=== PATIENT | male | born 1960 | race Hispanic/Latino ===

== ENCOUNTER 2018-10-05 14:30 | Inpatient (IN) | payer MEDICARE ==
[~2018-10-05] VITALS: Ht 157.5 cm; Wt 79.0 kg
--- OUTSIDE RECORDS SUMMARY | 2018-10-05 14:32 | XMS REPORT | Continuity of Care Document ---
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 09/09/2018 [facility] Chronic pain syndrome Active Diagnosis 09/09/2018 [facility] Counseling on substance use and abuse Active Diagnosis 09/09/2018 [facility] Lumbosacral neuritis Active Problem 09/09/2018 [facility] Depression Active Problem 09/09/2018 [facility] Facet joint disease of lumbosacral region Active Problem 09/09/2018 [facility] Degenerative arthritis of knee, bilateral Active Problem 09/09/2018 [facility] Encounter for long-term use of other medications Active Problem 09/09/2018 [facility] Left foot pain Active Diagnosis 09/09/2018 [facility] Medications Medication Details Route Status Patient Instructions Ordering Provider Order Date Source MS Contin 1 tablet Orally Active 15 MG Orally every 12 hrs Tamara 08/09/2018 [facility] Gabapentin 1 tablet Orally Active 800 MG Orally Three times a day Tamara 08/09/2018 [facility] MS Contin 1 tablet Orally Active 15 MG Orally every 12 hrs 07/07/2018 [facility] Gabapentin 1 tablet Orally Active 800 MG Orally Three times a day 07/07/2018 [facility] MS Contin 1 tablet Orally Active 15 MG Orally every 12 hrs 06/09/2018 [facility] Gabapentin 1 tablet Orally Active 800 MG Orally Three times a day 06/09/2018 [facility] MS Contin 1 tablet Orally Active 15 MG Orally every 12 hrs 04/26/2018 [facility] Gabapentin 1 tablet Orally Active 800 MG Orally Three times a day Tamara 04/26/2018 [facility] MS Contin 1 tablet Orally Active 15 MG Orally every 12 hrs 03/08/2018 [facility] Gabapentin 1 tablet Orally Active 800 MG Orally Three times a day Tamara 03/08/2018 [facility] Gabapentin 1 tablet Orally Active 800 MG Orally Three times a day Tamara 02/08/2018 [facility] MS Contin 1 tablet Orally Active 15 MG Orally every 12 hrs 02/08/2018 [facility] Metoprolol Tartrate 1 tablet with food Orally Active 25 MG Orally Twice a day [facility] Linagliptin 1 tablet Orally Active 5 MG Orally Once a day [facility] Isosorbide Mononitrate 1 tablet Orally Active 30 MG Orally Once a day Tamara [facility] Losartan Potassium 1 tablet Orally Active 25 MG Orally Once a day [facility] Clopidogrel Bisulfate 1 tablet Orally Active 75 MG Orally Once a day [facility] Atorvastatin Calcium 1 tablet Orally Active 80 MG Orally Once a day [facility] Zoloft 1 tablet Orally Active 100 MG Orally Once a day [facility] Lotrisone 1 application to affected area Externally Active 1- 0.05 % Externally Twice a day Tam[facility] Metformin HCl 1 tablet with meals Orally Active 500 MG Orally Twice a day [facility] Albuterol Sulfate HFA 2 puffs as needed Inhalation Active 108 (90 Base) MCG/ACT Inhalation every 4 hrs Tamara [facility] Lovastatin 1 tablet with a meal Orally Active 40 MG Orally Once a day [facility] Aspirin 1 tablet Orally Active 81 MG Orally Once a day [facility] Allergies, Adverse Reactions, Alerts Substance Category Reaction Severity Reaction type Status Date Reported Comments Source N.K.D.A. Adverse Reaction Info Not Available Adverse Reaction Active 06/09/2018 [facility] Immunizations Immunization Date Given Site Status Last Updated Comments Source Results Order Name Results Value Reference Range Date Interpretation Comments Source Vital Signs Vital Sign Value Date Comments Source Systolic (mm Hg) 144 06/09/2018 [facility] Weight 180.4 06/09/2018 [facility] Height 65 06/09/2018 [facility] Respitory Rate 16 06/09/2018 [facility] Heart Rate 63 06/09/2018 [facility] Diastolic (mm Hg) 95 06/09/2018 [facility] Systolic (mm Hg) 154 04/26/2018 [facility] Weight 177.4 04/26/2018 [facility] Height 65 04/26/2018 [facility] Respitory Rate 16 04/26/2018 [facility] Heart Rate 71 04/26/2018 [facility] Diastolic (mm Hg) 95 04/26/2018 [facility] Systolic (mm Hg) 155 04/05/2018 [facility] Weight 175.6 04/05/2018 [facility] Height 65 04/05/2018 [facility] Respitory Rate 16 04/05/2018 [facility] Heart Rate 67 04/05/2018 [facility] Diastolic (mm Hg) 91 04/05/2018 [facility] Systolic (mm Hg) 148 03/08/2018 [facility] Weight 175.0 03/08/2018 [facility] Height 65 03/08/2018 [facility] Respitory Rate 16 03/08/2018 [facility] Heart Rate 67 03/08/2018 [facility] Diastolic (mm Hg) 89 03/08/2018 [facility] Systolic (mm Hg) 144 02/08/2018 [facility] Weight 177 02/08/2018 [facility] Height 65 02/08/2018 [facility] Respitory Rate 16 02/08/2018 [facility] Heart Rate 56 02/08/2018 [facility] Diastolic (mm Hg) 90 02/08/2018 [facility] Encounters Location Location Details Encounter Type Encounter Number Reason For Visit Attending Provider ADM Date DC Date Status Source Procedures Procedure Code Date Perfomer Comments Source
--- OUTSIDE RECORDS SUMMARY | 2018-10-05 14:32 | XMS REPORT | Clinical Summary ---
Author Author [facility] Address Unknown Phone Unavailable Care Team Providers Care Bobbin Marker Name Role Phone PCP Unavailable Allergies No Known Allergies Medications End Date Status Medication Sig Dispensed Refills Start Date Active morPHINE (MSIR) 15 MG Take 15 mg by 0 tablet mouth 2 (two) times a day. Active metFORMIN (GLUCOPHAGE) Take 500 mg 0 500 mg tablet by mouth daily with breakfast. Active meloxicam (MOBIC) 15 mg Take 15 mg by 0 tablet mouth daily. Active gabapentin (NEURONTIN) Take 800 mg 0 800 mg tablet by mouth 3 (three) times a day. Active losartan (COZAAR) 25 MG TAKE 1 TABLET 90 tablet 0 tablet BY MOUTH 7 EVERY DAY Active metoprolol tartrate TAKE ONE 180 tablet 0 (LOPRESSOR) 25 mg tablet TABLET BY 7 MOUTH TWICE DAILY Active isosorbide mononitrate TAKE 1/2 45 tablet 0 (IMDUR) 30 MG 24 hr TABLET BY 7 tablet MOUTH EVERY DAY Active Problems Problem Noted Date STEMI (ST elevation myocardial infarction) 04/11/2017 AMI inferior wall 04/06/2017 Immunizations Name Dates Previously Given Next Due FLUCELVAX QUAD PF (0.5mL 04/11/2017 syringe) Social History Date Tobacco Use Types Packs/Day Years Used Former Smoker Alcohol Use Drinks/Week oz/Week Comments No Sex Assigned at Date Recorded Not on file Industry Job Start Date Occupation Not on file Not on file Not on file Travel End Travel History Travel Start No recent travel history available. Last Filed Vital Signs Not on file Plan of Treatment Health Maintenance Due Date Last Done Comments COLON CANCER SCREENING 2012 SHINGLES VACCINES (#1) 2012 INFLUENZA VACCINE 12/23/2018 04/11/2017 Implants Device Identifier Shelf Expiration Date Model / Serial / Lot Implanted Type Area Manufactur er 01/22/2018 [id number] / / [id number] Device Vasclr Clsr Vasoactive Cardiovasc N/A: N/A Intstnl Peptd 6fr Angio-Seal - ular [id number] Implants Implanted: 04/06/2017 (Quantity not on file) [id number] / / Stent System 4.0 X 18mm Resolute Coronary N/A: N/A [employer] Antonio Otw Coronary - [id number] [id number] [place] - Implanted: 04/06/2017 (Quantity not CARDIAC on file) RYHTYM MGMT Results Not on fileafter 10/04/2017 Insurance Payer Benefit Subscriber ID Type Phone Address Plan / Group [employer] [facility] x[facility] Advance Directives Patient has advance care planning documents on file. For more information, lam e contact: Eric Montalvo [address] [place] [address]
--- OUTSIDE RECORDS SUMMARY | 2018-10-05 14:33 | XMS REPORT ---
Author Author Nelson Mcdonald [facility] [employer] Address Unknown Phone Unavailable Care Team Providers Care Breeding Technician Name Role Phone Nelson Mcdonald CP Unavailable Allergies, Adverse Reactions, Alerts Substance Reaction Event Type N.K.D.A. Info Not Available Non Drug Allergy Problems Problem Type Condition Code Onset Dates Condition Status Assessment Other pain disorders related to psychological factors F45.42 Active Assessment Chronic pain syndrome G89.4 Active Assessment Counseling on substance use and abuse Z71.89 Active Problem Chronic pain syndrome G89.4 Active Problem Lumbosacral neuritis M54.17 Active Problem Depression F32.9 Active Problem Facet joint disease of lumbosacral region M48.8X7 Active Problem Degenerative arthritis of knee, bilateral M17.0 Active Problem Encounter for long-term (current) use of other medications Z79.899 Active Assessment Facet joint disease of lumbosacral region M48.8X7 Active Assessment Lumbosacral neuritis M54.17 Active Assessment Left foot pain M79.672 Active Assessment Degenerative arthritis of knee, bilateral M17.0 Active Assessment Depression F32.9 Active Assessment Encounter for long-term (current) use of other medications Z79.899 Active Medications Medication Code System Code Instructions Start Date End Date Status Dosage Metoprolol Tartrate [facility] 68638009873 25 MG Orally Twice a day Active 1 tablet with food Linagliptin [facility] [address]-91 5 MG Orally Once a day Active 1 tablet Gabapentin [facility] 26942946071 800 MG Orally Three times a day Feb 08, 2018 Active 1 tablet Isosorbide Mononitrate [facility] [address]-98 30 MG Orally Once a day Active 1 tablet Losartan Potassium [place] 51326729093 25 MG Orally Once a day Active 1 tablet Clopidogrel Bisulfate [facility] 75518480788 75 MG Orally Once a day Active 1 tablet Atorvastatin Calcium [facility] 16450833049 80 MG Orally Once a day Active 1 tablet Zoloft [facility] 14455690737 100 MG Orally Once a day Active 1 tablet MS Contin [facility] 14749959178 15 MG Orally every 12 hrs Feb 08, 2018 Mar 10, 2018 Active 1 tablet Lotrisone [facility] 70595893634 1-0.05 % Externally Twice a day Active 1 application to affected area Metformin HCl [facility] 34378941576 500 MG Orally Twice a day Active 1 tablet with meals Albuterol Sulfate HFA [facility] [address]-48 108 (90 Base) MCG/ACT Inhalation every 4 hrs Active 2 puffs as needed Lovastatin [facility] 71823419643 40 MG Orally Once a day Active 1 tablet with a meal Aspirin [facility] 16668740378 81 MG Orally Once a day Active 1 tablet Vital Signs Date/Time: Feb 08, 2018 Blood Pressure Systolic 144 mm Hg Weight 177 lbs Height 65 in BMI 29.45 Index Respiratory Rate 16 /min Cardiac Monitoring Heart Rate 56 /min Blood Pressure Diastolic 90 mm Hg Results No Known Results Summary Purpose [employer] Submission
--- OUTSIDE RECORDS SUMMARY | 2018-10-05 14:33 | XMS REPORT ---
Author Author [facility] Address Unknown Phone Unavailable Care Team Providers Care Cone Treater Name Role Phone Unavailable Unavailable Problems This patient has no known problems. Allergies, Adverse Reactions, Alerts This patient has no known allergies or adverse reactions. Medications This patient has no known medications.
--- OUTSIDE RECORDS SUMMARY | 2018-10-05 14:33 | XMS REPORT ---
Author Nelson Ruby Organization [employer] Address Unknown Phone Unavailable Care Team Providers Care Manager Of Tax Name Role Phone Nelson cMdonald CP Unavailable Allergies No Known Allergies Problems Problem Type Condition Code Onset Dates Condition Status Problem Chronic pain syndrome G89.4 Active Problem Lumbosacral neuritis M54.17 Active Problem Depression F32.9 Active Problem Facet joint disease of lumbosacral region M48.8X7 Active Problem Degenerative arthritis of knee, bilateral M17.0 Active Problem Encounter for long-term (current) use of other medications Z79.899 Active Medications No Known Medications Results No Known Results Summary Purpose [employer] Submission
--- OUTSIDE RECORDS SUMMARY | 2018-10-05 14:33 | XMS REPORT ---
Author Author Nelson Mcdonald [facility] [employer] Address Unknown Phone Unavailable Care Team Providers Care Icu Staff Nurse Name Role Phone Nelson Mcdonald CP Unavailable [...] Instructions Start Date End Date Status Dosage Atorvastatin Calcium [facility] 72785530521 80 MG Orally Once a day Active 1 tablet MS Contin [facility] 02390671548 15 MG Orally every 12 hrs Jun 09, 2018 Jul 09, 2018 Active 1 tablet Isosorbide Mononitrate [facility] [address]-73 30 MG Orally Once a day Active 1 tablet Metoprolol Tartrate [facility] 38509502839 25 MG Orally Twice a day Active 1 tablet with food Lovastatin [facility] 19856233702 40 MG Orally Once a day Active 1 tablet with a meal Lotrisone [facility] 96507925004 1-0.05 % Externally Twice a day Active 1 application to affected area Aspirin [facility] 21436416668 81 MG Orally Once a day Active 1 tablet Linagliptin [facility] [address]-26 5 MG Orally Once a day Active 1 tablet Clopidogrel Bisulfate [facility] 42624357463 75 MG Orally Once a day Active 1 tablet Metformin HCl [facility] 82072235617 500 MG Orally Twice a day Active 1 tablet with meals Zoloft [facility] 66008729061 100 MG Orally Once a day Active 1 tablet Losartan Potassium [place] 30282777500 25 MG Orally Once a day Active 1 tablet Albuterol Sulfate HFA [facility] [address]-60 108 (90 Base) MCG/ACT Inhalation every 4 hrs Active 2 puffs as needed Gabapentin [facility] 93501819118 800 MG Orally Three times a day Jun 09, 2018 Active 1 tablet Vital Signs Date/Time: Jun 09, 2018 Blood Pressure Systolic 144 mm Hg Weight 180.4 lbs Height 65 in BMI 30.02 Index Respiratory Rate 16 /min Cardiac Monitoring Heart Rate 63 /min Blood Pressure Diastolic 95 mm Hg Results No Known Results Summary Purpose [employer] Submission
--- OUTSIDE RECORDS SUMMARY | 2018-10-05 14:33 | XMS REPORT ---
Author Author Nelson Mcdonald [facility] [employer] Address Unknown Phone Unavailable Care Team Providers Care Globe Tester Name Role Phone Nelson Mcdonald CP Unavailable [...] Date End Date Status Dosage Metoprolol Tartrate [facility] 70521318606 25 MG Orally Twice a day Active 1 tablet with food Losartan Potassium [facility] 70088544489 25 MG Orally Once a day Active 1 tablet Aspirin [facility] 80021739338 81 MG Orally Once a day Active 1 tablet Lovastatin [facility] 81311202111 40 MG Orally Once a day Active 1 tablet with a meal Linagliptin [facility] [address]-51 5 MG Orally Once a day Active 1 tablet Metformin HCl ND 52779907281 500 MG Orally Twice a day Active 1 tablet with meals MS Contin [facility] 99197980095 15 MG Orally every 12 hrs Mar 08, 2018 Apr 07, 2018 Active 1 tablet Zoloft [facility] 76635181207 100 MG Orally Once a day Active 1 tablet Lotrisone [facility] 85107474325 1-0.05 % Externally Twice a day Active 1 application to affected area Albuterol Sulfate HFA [facility] [address]-89 108 (90 Base) MCG/ACT Inhalation every 4 hrs Active 2 puffs as needed Isosorbide Mononitrate [facility] [address]-96 30 MG Orally Once a day Active 1 tablet Clopidogrel Bisulfate [facility] 18537009495 75 MG Orally Once a day Active 1 tablet Atorvastatin Calcium [facility] 83143954231 80 MG Orally Once a day Active 1 tablet Gabapentin [facility] 19230462750 800 MG Orally Three times a day Mar 08, 2018 Active 1 tablet Vital Signs Date/Time: Mar 08, 2018 Blood Pressure Systolic 148 mm Hg Weight 175.0 lbs Height 65 in BMI 29.12 Index Respiratory Rate 16 /min Cardiac Monitoring Heart Rate 67 /min Blood Pressure Diastolic 89 mm Hg Results No Known Results Summary Purpose [employer] Submission
--- OUTSIDE RECORDS SUMMARY | 2018-10-05 14:33 | XMS REPORT ---
Author Nelson Ruby Organization [employer] Address Unknown Phone Unavailable Care Team Providers Care Lead Generation Specialist Name Role Phone Nelson Mcdonald CP Unavailable [...] Date End Date Status Dosage Metoprolol Tartrate [facility] 99398849231 25 MG Orally Twice a day Active 1 tablet with food Losartan Potassium [facility] 15394491325 25 MG Orally Once a day Active 1 tablet Lotrisone [facility] 27869588148 1-0.05 % Externally Twice a day Active 1 application to affected area Aspirin [facility] 58410727715 81 MG Orally Once a day Active 1 tablet Linagliptin [facility] [address]-41 5 MG Orally Once a day Active 1 tablet MS Contin [facility] 39345703405 15 MG Orally every 12 hrs Apr 26, 2018 May 26, 2018 Active 1 tablet Albuterol Sulfate HFA [facility] [address]-62 108 (90 Base) MCG/ACT Inhalation every 4 hrs Active 2 puffs as needed Zoloft [facility] 07391602003 100 MG Orally Once a day Active 1 tablet Lovastatin [facility] 41052058369 40 MG Orally Once a day Active 1 tablet with a meal Atorvastatin Calcium [facility] 62548632073 80 MG Orally Once a day Active 1 tablet Clopidogrel Bisulfate [facility] 19702786314 75 MG Orally Once a day Active 1 tablet Isosorbide Mononitrate [facility] [address]-60 30 MG Orally Once a day Active 1 tablet Metformin HCl [facility] 29636215013 500 MG Orally Twice a day Active 1 tablet with meals Gabapentin [facility] 26772338107 800 MG Orally Three times a day Apr 26, 2018 Active 1 tablet Vital Signs Date/Time: Apr 26, 2018 Blood Pressure Systolic 154 mm Hg Weight 177.4 lbs Height 65 in BMI 29.52 Index Respiratory Rate 16 /min Cardiac Monitoring Heart Rate 71 /min Blood Pressure Diastolic 95 mm Hg Results No Known Results Summary Purpose [employer]Works Submission
--- OUTSIDE RECORDS SUMMARY | 2018-10-05 14:33 | XMS REPORT ---
Author Author Nelson Mcdonald Organization [employer] Address Unknown Phone Unavailable Care Team Providers Care Automation Qa Analyst Name Role Phone Nelson Mcdonald CP Unavailable [...] Instructions Start Date End Date Status Dosage Zoloft [facility] 36145184645 100 MG Orally Once a day Active 1 tablet Lotrisone [facility] [place] 55544588940 1-0.05 % Externally Twice a day Active 1 application to affected area Isosorbide Mononitrate [facility] [address]-39 30 MG Orally Once a day Active 1 tablet Linagliptin [facility] [place] [address]-91 5 MG Orally Once a day Active 1 tablet Albuterol Sulfate HFA [facility] [place] [address]-54 108 (90 Base) MCG/ACT Inhalation every 4 hrs Active 2 puffs as needed Aspirin [facility] [place] 84755580305 81 MG Orally Once a day Active 1 tablet Atorvastatin Calcium [facility] [place] 76225510723 80 MG Orally Once a day Active 1 tablet MS Contin [facility] [place] [place] 02628997858 15 MG Orally every 12 hrs August 09, 2018 Active 1 tablet Metoprolol Tartrate [facility] [place] [place] 37060685959 25 MG Orally Twice a day Active 1 tablet with food Metformin HCl [facility] [place] 61487243436 500 MG Orally Twice a day Active 1 tablet with meals Gabapentin [facility] [place] 92945130220 800 MG Orally Three times a day August 09, 2018 Active 1 tablet Losartan Potassium [facility] [place] [place] 65665048820 25 MG Orally Once a day Active 1 tablet Lovastatin [facility] [place] [place] 98750589558 40 MG Orally Once a day Active 1 tablet with a meal Clopidogrel Bisulfate [facility] 68213302689 75 MG Orally Once a day Active 1 tablet Vital Signs Date/Time: Apr 05, 2018 Blood Pressure Systolic 155 mm Hg Weight 175.6 lbs Height 65 in BMI 29.22 Index Respiratory Rate 16 /min Cardiac Monitoring Heart Rate 67 /min Blood Pressure Diastolic 91 mm Hg Results No Known Results Summary Purpose [employer] Submission
--- OUTSIDE RECORDS SUMMARY | 2018-10-05 14:33 | XMS REPORT ---
Author Author Nelson Mcdonald [facility] [employer] Address Unknown Phone Unavailable Care Team Providers Care Fuel Technician Name Role Phone Nelson Mcdonald CP Unavailable Allergies No Known Allergies Problems [...] Instructions Start Date End Date Status Dosage Lotrisone [facility] 17698029054 1-0.05 % Externally Twice a day Active 1 application to affected area Aspirin [facility] 97627364003 81 MG Orally Once a day Active 1 tablet Linagliptin [facility] [address]-70 5 MG Orally Once a day Active 1 tablet Metformin HCl [facility] 96658930158 500 MG Orally Twice a day Active 1 tablet with meals Lovastatin [facility] 15767577672 40 MG Orally Once a day Active 1 tablet with a meal Clopidogrel Bisulfate [facility] 93899792693 75 MG Orally Once a day Active 1 tablet Isosorbide Mononitrate [facility] [address]-44 30 MG Orally Once a day Active 1 tablet MS Contin [facility] 82272751140 15 MG Orally every 12 hrs Jul 07, 2018 August 06, 2018 Active 1 tablet Metoprolol Tartrate [facility] 74194814692 25 MG Orally Twice a day Active 1 tablet with food Gabapentin [facility] 80539085911 800 MG Orally Three times a day Jul 07, 2018 Active 1 tablet Losartan Potassium [facility] 42629087918 25 MG Orally Once a day Active 1 tablet Albuterol Sulfate HFA [facility] [address]-85 108 (90 Base) MCG/ACT Inhalation every 4 hrs Active 2 puffs as needed Zoloft [facility] 79472833573 100 MG Orally Once a day Active 1 tablet Atorvastatin Calcium [facility] 00723915094 80 MG Orally Once a day Active 1 tablet Results No Known Results Summary Purpose [employer] Submission
--- NOTE | 2018-10-05 15:59 | Diagnostic Imaging Report ---
History:Right-sided arm numbness Comparison studies:None Technique: Axial images were obtained from the skull base to the vertex. Coronal and sagittal images reconstructed from the axial data. Intravenous contrast: None Dose modulation, iterative reconstruction, and/or weight based adjustment of the mA/kV was utilized to reduce the radiation dose to as low as reasonably achievable. Findings: Scalp/skull: No abnormalities. Extra-axial spaces: No masses. No fluid collections. Brain sulci: Age-appropriate. Ventricles: Age-appropriate. No hydrocephalus. Parenchyma: Small hypodensity at the left subcortical precentral gyrus. No significant mass effect Few hypodensities in the supratentorial white matter are small vessel ischemic changes. No masses, hemorrhage. Sellar/suprasellar region: No abnormalities. Craniocervical junction: Patent foramen magnum. No Chiari one malformation. Incidental findings: Atherosclerotic calcifications in the carotid siphons . Bubbly secretions and partial opacification of the left maxillary sinus. Impression: 1. Age-indeterminate infarct at the left precentral gyrus subcortical white matter, favor to be acute, if indicated MRI could be helpful for further evaluation. 2. Mild supratentorial white matter small vessel ischemic changes. 3. Left maxillary sinusitis The above finding was reported and another by Dr. Saleem at 3:53 PM 10/05/2018 Signed by: DR Krzysztof Hall M.D. on 10/05/2018 3:56 PM
[2018-10-05] MEDS ORDERED: ASPIRIN 81 MG CHEW TAB PO ONE (16:00)
[2018-10-05 16:10] LABS: BASOPHILS % 0.3 % (0.0-1.0); EOSINOPHILS # (AUTO) 0.2 (0.0-0.4); EOSINOPHILS % 1.9 % (0.0-6.0); HEMATOCRIT 44.9 % (38.2-49.6); HEMOGLOBIN 14.8 g/dL (14.0-18.0); LYMPHOCYTES # (AUTO) 2.7 (1.0-3.2); LYMPHOCYTES % 24.2 % (18.0-39.1); MEAN CORPUSCULAR HEMOGLOBIN 29.4 pg (28-32); MEAN CORPUSCULAR VOLUME 89.1 fL (81-99); MONOCYTES # (AUTO) 0.7 (0.2-0.8); MONOCYTES % 6.6 % (4.4-11.3); NEUTROPHILS # (AUTO) 7.3 (2.1-6.9); NEUTROPHILS % 66.5 % (38.7-80.0); PLATELET COUNT 349 x10e3/uL (140-360); RED BLOOD COUNT 5.04 x10e6/uL (4.3-5.7); RED CELL DISTRIBUTION WIDTH 12.8 % (11.7-14.4)
--- NOTE | 2018-10-05 16:11 | Diagnostic Imaging Report ---
Examination: Single AP view of the chest. COMPARISON: None. INDICATION: Stroke right arm weakness DISCUSSION: Lines/tubes: None. Lungs: The lungs are well inflated and clear. There is no evidence of pneumonia or pulmonary edema. Pleura: There is no pleural effusion or pneumothorax. Heart and mediastinum: The heart and the mediastinum are unremarkable. Bones and soft tissues: No acute bony abnormalities. Degenerative changes in the thoracic spine. IMPRESSION: 1. No acute cardiopulmonary abnormalities. Signed by: Dr. Ta Kaur M.D. on 10/05/2018 4:08 PM
[2018-10-05 16:16] LABS: CLARITY,URINE SL CLOUDY (CLEAR); COLOR,URINE YELLOW (YELLOW)
[2018-10-05 16:17] LABS: BILIRUBIN,URINE NEGATIVE (NEGATIVE); KETONES,URINE NEGATIVE (NEGATIVE); LEUKOCYTE ESTERASE ,URINE NEGATIVE (NEGATIVE); NITRITE,URINE NEGATIVE (NEGATIVE); PROTEIN,URINE DIPSTICK 2+ (NEGATIVE); URINE UROBILINOGEN 0.2 mg/dL (0.2 - 1)
[2018-10-05 16:20] LABS: INR 0.82; PARTIAL THROMBOPLASTIN TIME 25.2 seconds (23.8-35.5); PROTHROMBIN TIME 11.8 seconds (11.9-14.5)
[2018-10-05 16:26] LABS: RBC,URINE 0-5 /HPF (0-5)
[2018-10-05 16:31] LABS: ALANINE AMINOTRANSFERASE 49 IU/L (0-55); ALBUMIN 3.3 g/dL (3.5-5.0); ALBUMIN/GLOBULIN RATIO 0.9 (0.8-2.0); ALKALINE PHOSPHATASE 83 IU/L (40-150); BLOOD UREA NITROGEN 24 mg/dL (7-26); BUN/CREATININE RATIO 20 (6-25); CALCIUM 9.5 mg/dL (8.4-10.2); CARBON DIOXIDE 21 mmol/L (22-29); CHLORIDE 105 mmol/L (98-107); CREATINE KINASE 106 IU/L (30-200); CREATININE, SERUM 1.23 mg/dL (0.72-1.25); EST GLOMERULAR FILTRATION RATE > 60 ML/MIN (60-); GLUCOSE 105 mg/dL (74-118); SODIUM 135 mmol/L (136-145)
[2018-10-05 16:52] LABS: THYROID STIMULATING HORMONE 0.557 uIU/mL (0.350-4.940)
--- OUTSIDE RECORDS SUMMARY | 2018-10-05 19:29 | XMS REPORT | Clinical Summary ---
Author Author [facility] Address Unknown Phone Unavailable Care Team Providers Care Packaging Technician Name Role Phone PCP Unavailable Allergies No [...] Lot Implanted Type Area Manufactur er 01/22/2018 [id number] / / [id number] Device Vasclr Clsr Vasoactive Cardiovasc N/A: N/A Intstnl Peptd 6fr Angio-Seal - ular [id number] Implants Implanted: 04/06/2017 (Quantity not on file) [id number] / / Stent System 4.0 X 18mm Resolute Coronary N/A: N/A [employer] Antonio Otw Coronary - [id number] Stents [place] - Implanted: 04/06/2017 (Quantity not CARDIAC on file) RYHTYM MGMT Results Not on fileafter 10/04/2017 Insurance Payer Benefit Subscriber ID Type Phone Address Plan / Group [facility] [facility]IGNA xxxxxxxxxxx [facility] Advance Directives Patient has advance care planning documents on file. For more information, lam e contact: Eric Montalvo [address] [place] [address]
[2018-10-05] MEDS ORDERED: ONDANSETRON HCL INJ 2MG/ML 2ML 2 MG/ML VIAL IV PRN (19:30)
[2018-10-05] MEDS: FAMOTIDINE 20 MG/2 ML VIAL IV SCH (20:03)
[2018-10-05] MEDS ORDERED: IBUPROFEN400 MG PO (20:32)
[2018-10-05] MEDS ORDERED: ISOSORBIDE MONO30 MG PO (20:32)
[2018-10-05] MEDS ORDERED: CLOPIDOGREL75 MG PO (20:32)
[2018-10-05] MEDS ORDERED: GABAPENTIN400 MG PO (20:32)
[2018-10-05] MEDS ORDERED: MS CONTIN15 MG PO (20:32)
[2018-10-05] MEDS ORDERED: LISINOPRIL10 MG PO (20:32)
[2018-10-05] MEDS ORDERED: METFORMIN HCL500 MG PO (20:32)
[2018-10-05] MEDS ORDERED: METOPROLOL TART50 MG PO (20:32)
[2018-10-05 20:50] VITALS: BP 147/72
--- NOTE | 2018-10-05 22:11 | NUR ---
PT IS TRANSFERRED FROM ER .PT IS AOX3 .RESPIRATIONS ARE EVEN AND UNLABORED PT HAS RT ARM WEAKNESS .PT CAN NOT RAISE THE RT HAND WELL DENIES PAIN.TELE 29 SHOWS SB.ORIENTED THE PT TO THE ENVIRONMENT .ASSESSMENT DONE .CALL LIGHT WITH IN REACH ,CONTINUE TO MONITOR
[2018-10-05 23:40] VITALS: BP 128/77
[2018-10-06] VITALS (8 sets, daily range): BP systolic 101–164; BP diastolic 60–92
[2018-10-06 01:40] LABS: CREATINE KINASE 80 IU/L (30-200)
[2018-10-06 06:45] LABS: BASOPHILS % 0.3 % (0.0-1.0); EOSINOPHILS # (AUTO) 0.2 (0.0-0.4); EOSINOPHILS % 2.2 % (0.0-6.0); HEMATOCRIT 40.6 % (38.2-49.6); HEMOGLOBIN 13.4 g/dL (14.0-18.0); LYMPHOCYTES # (AUTO) 2.5 (1.0-3.2); LYMPHOCYTES % 24.2 % (18.0-39.1); MEAN CORPUSCULAR HEMOGLOBIN 29.5 pg (28-32); MEAN CORPUSCULAR VOLUME 89.2 fL (81-99); MONOCYTES # (AUTO) 0.7 (0.2-0.8); MONOCYTES % 6.5 % (4.4-11.3); NEUTROPHILS # (AUTO) 6.7 (2.1-6.9); NEUTROPHILS % 66.2 % (38.7-80.0); PLATELET COUNT 303 x10e3/uL (140-360); RED BLOOD COUNT 4.55 x10e6/uL (4.3-5.7); RED CELL DISTRIBUTION WIDTH 12.7 % (11.7-14.4)
[2018-10-06 07:16] LABS: ALANINE AMINOTRANSFERASE 41 IU/L (0-55); ALBUMIN 2.6 g/dL (3.5-5.0); ALBUMIN/GLOBULIN RATIO 0.8 (0.8-2.0); ALKALINE PHOSPHATASE 67 IU/L (40-150); BLOOD UREA NITROGEN 24 mg/dL (7-26); BUN/CREATININE RATIO 21 (6-25); CALCIUM 8.9 mg/dL (8.4-10.2); CARBON DIOXIDE 22 mmol/L (22-29); CHLORIDE 111 mmol/L (98-107); CHOL/HDL RATIO 4.5 (3.9-4.7); CHOLESTEROL 179 MD/DL (0-199); CREATININE, SERUM 1.15 mg/dL (0.72-1.25); EST GLOMERULAR FILTRATION RATE > 60 ML/MIN (60-); GLUCOSE 134 mg/dL (74-118); HDL CHOLESTEROL 40 MG/DL (40-60); LDL CHOLESTEROL 103 MG/DL (60-130); SODIUM 139 mmol/L (136-145); TRIGLYCERIDES 178 MG/DL (0-149)
--- NOTE | 2018-10-06 07:17 | NUR ---
PT RESTED DURING THE NIGHT .DENIES PAIN REPORT GIVEN TO THE ON COMING NURSE
--- NOTE | 2018-10-06 07:30 | NUR ---
Pt received in bed. aox4 and able to verbalize needs. Pt denies any pain at this time. Pt has some mobility to right arm but states that it is weak.
--- NOTE | 2018-10-06 07:32 | NUR ---
H&P cc: weakness right hand HPI: 57yoM, PCP Dr.A. Baker, developed weakness of right hand, no speech changes/dizziness/vision changes, CT shows stroke age indeterminate. Symptoms for 2 days; PMH: HTN, Obesity, DM2, DM-neuropathy, stroke, polio, CAD s/ CABG PSHx: CABG 2017 Allergies; see emr fh/Sh; ; no etoh/cigs/illicits meds; see MAR ros; no f/c/s/n/V/d/HERNANDEZ/vision changes/cp/sob/skin rash v/s; revd PE: tired appearing anicteric ns1s2 mod bs soft nt nd no e/t skin dry n. affect a&ox3; RIGHT ARM 4/5 MOTOR, others 5/5; normal speech; no visual field deficits; labs/med; revd A/P: 57yoM Stroke- age indeterminate HTN DM2 MEtabolic acidosis Obesity BMI 31.8 CAD with hx CABG hx Polio PLAN MRI/A Lipid panel Hba1c PT consult ASA/plavix/statin/BB Prop: scd; pepcid Dispo: f/u labs and imaging; f/u neuro recs Bob Singh MD, PhD.
--- NOTE | 2018-10-06 07:38 | NUR ---
Stat consult was not called by ED. Dr. kurtz was called a this time.
[2018-10-06] MEDS ORDERED: DEXTROSE 50% SYRINGE 50 ML IV PRN (07:45)
[2018-10-06 08:03] LABS: CREATINE KINASE 76 IU/L (30-200)
[2018-10-06] MEDS ORDERED: CLOPIDOGREL BISULFATE 75 MG TAB PO SCH (09:00)
[2018-10-06] MEDS ORDERED: ASPIRIN 325 MG TAB EC PO SCH ×2 (09:00)
[2018-10-06] MEDS: FAMOTIDINE 20 MG/2 ML VIAL IV SCH ×2 (09:12→20:12)
[2018-10-06] MEDS: METOPROLOL TARTRATE 50 MG TAB PO SCH ×2 (09:14→16:38)
[2018-10-06] MEDS: GABAPENTIN 400 MG CAP PO SCH ×3 (09:14→20:12)
[2018-10-06] MEDS: LISINOPRIL 10 MG TAB PO SCH (09:15)
[2018-10-06] MEDS: ISOSORBIDE MONONITRATE 30 MG TAB CR PO SCH (09:25)
[2018-10-06] MEDS: INSULIN REGULAR, HUMAN 100 UNIT/1 ML 3ML VIAL SQ SCH ×3 (11:30→20:12)
--- NOTE | 2018-10-06 13:44 | Diagnostic Imaging Report ---
Examination: MRI BRAIN WITHOUT CONTRAST History: Right arm weakness. Comparison studies: Head CT performed yesterday. Technique: Sagittal T2; axial DWI, FLAIR, GRE or SWI, T1, Coronal FLAIR. Intravenous contrast: None Findings: Scalp: No abnormal signal. No masses. Bone marrow: Normal in signal intensity. Brain volume: Adequate for age. No volume loss. Ventricles: Normal in size and configuration. No hydrocephalus. Extra-axial spaces: No abnormalities. Parenchyma: There are scattered punctate and patchy areas of T2/FLAIR hyperintensity in the periventricular and subcortical white matter, nonspecific. No masses or hemorrhage. There is an acute lacunar infarct involving the left precentral gyrus (hand knob region). Suprasellar and sellar region: No abnormalities. Craniocervical junction: No abnormalities. The foramen magnum is patent. No Chiari malformations. Vessels: Normal flow-voids in the arteries and sinuses. Additional findings:Mild circumferential inflammatory mucosal thickening of the left maxillary sinus. IMPRESSION: 1. Acute, nonhemorrhagic lacunar infarct involving the left precentral gyrus which explains patient's symptoms. 2. Mild chronic microvascular ischemic change. Signed by: Dr. Adeola Molina M.D. on 10/06/2018 1:40 PM
--- NOTE | 2018-10-06 13:47 | Diagnostic Imaging Report ---
Examination: MRA HEAD AND NECK WITHOUT CONTRAST History: Right arm weakness Comparison studies: None Technique: 2-D and 3-D [id number] MR angiograms of the cervical and intracranial circulations were obtained. MIP images of the arteries were isolated into the right and left cervical circulations and anterior and posterior intracranial circulations, 180 degree projections. Sagittal and coronal MPR images, and axial source images are available for evaluation. Degree of stenosis at the carotid bulbs, if present, will be calculated using NASCET criteria where the smallest diameter at the location of stenosis is compared to the diameter of the more distal non-diseased vessel lumen. Findings: Cervical MRA Aortic arch: Normal 3 great vessel origin. Patent. Internal carotid arteries: No flow abnormalities at the origins of the common carotid arteries, the cervical carotid bifurcations or in the cervical segments. Vertebral arteries: No flow abnormalities at the origins of the vertebral arteries or through its cervical segments (V1-V3). Intracranial MRA: Internal carotid arteries: Patent.. Anterior cerebral arteries: Patent A1 segments.. Middle cerebral arteries: Patent M1 segments.. Vertebrobasilar circulation: Patent. Posterior cerebral arteries: Patent bilaterally.. Anatomical variants: Anterior communicating arteries: Patent. Posterior communicating arteries: Patent on the right. Not visualized on the left. Vertebral arteries:Codominant. IMPRESSION: No cervical or intracranial arterial stenosis or occlusion. Signed by: Dr. Adeola Molina M.D. on 10/06/2018 1:43 PM
[2018-10-06 15:17] LABS: CREATINE KINASE 73 IU/L (30-200)
[2018-10-06] MEDS ORDERED: ACETAMINOPHEN 325 MG TAB PO PRN (16:30)
[2018-10-06] MEDS: APIXABAN 5 MG TABLET PO SCH (16:42)
--- NOTE | 2018-10-06 18:39 | NUR ---
Pt in bed aox4 and able to verbalize needs. Pt denies any pain at this time. 0 s/s of acute distress noted.
--- NOTE | 2018-10-06 19:25 | NUR ---
Completed bedside rounds with morning nurse. Pt alert and orient to name. Lying in bed HOB 30 degrees. Denies pain at this time. Call rangel within reach. Will continue to monitor.
[2018-10-06] MEDS ORDERED: ATORVASTATIN 20 MG TAB PO SCH (21:00)
--- NOTE | 2018-10-06 23:06 | Consultation ---
DATE OF CONSULTATION: Neurology Consult Note HISTORY OF PRESENT ILLNESS: Mr. Dalton is a 57-year-old right-hand dominant man with multiple vascular risk factors, admitted to [facility] on October 05, 2018 with symptoms suspicious for stroke. At approximately 1700 hours on October 04, 2018, the patient experienced the sudden onset of weakness and numbness affecting his right arm. Mr. Dalton does not report a visual field cut or other disturbance, facial droop, weakness in the right leg, numbness over the right side of the face, numbness affecting the right leg, dizziness, or confusion associated with the above symptoms. The patient reports possible dysarthria as well as poor balance and impairment of gait, but these last two symptoms are chronic. When his symptoms had not improved by the following day, Mr. Dalton contacted his primary care physician, who advised him to proceed to the emergency center at [facility] for further evaluation of his symptoms. Upon arrival in the emergency center, the patient was afebrile with a blood pressure 166/94 mmHg and a pulse of 59 beats per minute. His neurological examination was significant for mild weakness in the right arm and diminished sensation to light touch in the right arm. No other focal neurological deficits were noted. While in the emergency center, a CT of the brain without contrast was performed. This study revealed acute to subacute ischemia in the left precentral gyrus subcortical white matter. Mr. Dalton was admitted to [facility] as an inpatient for further evaluation and treatment of his symptoms. Mr. Dalton does not report experiencing similar symptoms previously. At home, the patient takes Plavix 75 mg by mouth daily. He endorses compliance with this medication. REVIEW OF SYSTEMS: Weakness of the right arm, numbness of the right arm, and chronic low back pain. Otherwise, a 12-point review of systems is negative. PAST MEDICAL HISTORY: Hypertension, diabetes mellitus type 2, coronary artery disease with four prior myocardial infarctions, chronic low back pain, polio in childhood with residual bilateral lower extremity weakness and left facial weakness (per the patient). PAST SURGICAL HISTORY: A 3-vessel CABG, cardiac catheterization, surgery on the left eye, right foot surgery in childhood (tendon lengthening procedure). PAST HOSPITALIZATIONS: Surgeries/procedures as listed, myocardial infarctions. FAMILY MEDICAL HISTORY: Hypertension and diabetes mellitus. SOCIAL HISTORY: Mr. Dalton is . He is retired. The patient does not report current or prior tobacco, alcohol, or recreational drug use. HOME MEDICATIONS: Plavix 75 mg by mouth daily, isosorbide mononitrate 50 mg by mouth daily, lisinopril 10 mg by mouth daily, metoprolol 50 mg by mouth twice daily, metformin 500 mg by mouth daily, gabapentin 800 mg by mouth three times daily, and morphine sulfate 15 mg by mouth every 12 hours. HOSPITAL MEDICATIONS: Tylenol, Eliquis, Lipitor, Pepcid, gabapentin, insulin sliding scale, isosorbide mononitrate, lisinopril, metoprolol tartrate, and Zofran. ALLERGIES: NO KNOWN DRUG ALLERGIES. NO KNOWN FOOD ALLERGIES. NO KNOWN ALLERGIES TO LATEX. NO KNOWN ALLERGIES TO IODINE OR OTHER CONTRAST MATERIALS. PHYSICAL EXAMINATION: VITAL SIGNS: Height 62 inches, weight 175 pounds, BMI 31.8 kg/m2, blood pressure 116/63 mmHg, pulse 55 beats per minute, respiratory rate 20 breaths per minute, and oxygen saturation 96% on room air. GENERAL: The patient is awake and alert, does not appear distressed. Obese. HEENT: Normocephalic, atraumatic. Pupils are equal, round, and reactive to light. Moist mucous membranes. NECK: Supple. No appreciable thyromegaly. No appreciable carotid bruits. CARDIOVASCULAR: S1, S2, regular rate and rhythm. Positive low-grade systolic ejection murmur. No rubs or gallops. RESPIRATORY: Clear to auscultation bilaterally. No wheezes, rhonchi, or rales. EXTREMITIES: The skin is warm and dry. No clubbing, cyanosis, or edema. The posterior tibial and dorsalis pedis pulses are 1+ and symmetric. SKIN: No rashes or lesions. NEUROLOGIC: Memory/Attention: The patient is awake and alert, oriented to person, place, time, and situation. Cranial Nerves: Cranial nerve I - not tested. Cranial nerves II, III, IV, and - pupils are equal and round, reactive briskly to light (from 4 mm to 2 mm). Extraocular movements intact. No nystagmus. Cranial nerve V - sensation to light touch and pinprick is intact in the bilateral V1 through V3 distributions. Strength of the temporalis and masseter muscles are within normal limits. Cranial nerve VII - the face is asymmetric on the left as are all facial movements. Moderate left peripheral facial weakness. Cranial nerve VIII - hearing is intact to finger rub bilaterally. Cranial nerves IX, X - the soft palate elevates equally and symmetrically. Cranial nerve XI - normal strength of the bilateral sternocleidomastoid and trapezius muscles. Cranial nerve XII - the tongue protrudes midline and moves symmetrically from [id number]-kt-ilse. Strength: Bulk is diminished in both legs. Strength is 5/5 in the left deltoid, biceps, triceps, wrist flexors and extensors, finger flexors and extensors, intrinsic hand muscles, hip flexors, knee flexors and extensors, ankle dorsiflexion and plantar flexion, and intrinsic foot muscles. On the right, deltoids are 4/5, biceps 4/5, triceps 3/5, wrist flexors 4/5, wrist extensors 3/5, finger flexors 4/5, finger extensors 3-/5, intrinsic hand muscles 4/5, hip flexors 4-/5, knee flexors 4-/5, knee extensors 4+/5, ankle dorsiflexion 4-/5, ankle plantar flexion 4+/5, and intrinsic foot muscles 4/5. Tone is normal in all extremities. DTRs: Deep tendon reflexes are 1+ and symmetric at the triceps, biceps, and brachioradialis. Deep tendon reflexes are trace and symmetric at the patellas. Deep tendon reflexes are absent and symmetric at the Achilles. Plantar responses are flexor bilaterally. Sensation: Sensation is intact to light touch and pinprick in both arms and both legs. Cerebellar: Qdyhuk-wevt-mgeush and heel-vera movements are intact without dysmetria or other impairment except as follows: There is dysmetria with xwcujb-arzh-eeezwk movements of the right arm, but this is within the bounds of paresis. Gait: Deferred. Speech: Spontaneous speech is normal without appreciable dysarthria or aphasia. Repetition is intact. Involuntary Movements: None. Pronator Drift: Right arm. LABORATORY DATA: The most recent comprehensive metabolic panel is significant for a chloride of 111, glucose of 134, total protein of 5.9, albumin of 2.6. Cardiac enzymes are negative x4. TSH 0.557. B-natriuretic peptide 55.1. Hemoglobin A1c 6.8. Total cholesterol 179, triglycerides 178, LDL cholesterol 103, HDL cholesterol 40. The CBC with differential and platelets is unremarkable. PT 11.8, INR 0.82, PTT 25.2. Urinalysis was significant for slightly cloudy urine with 2+ protein, trace blood. DIAGNOSTIC STUDIES: Electrocardiogram on 10/05/2018: Sinus bradycardia at 57 beats per minute. Chest x-ray on 10/05/2018: No acute cardiopulmonary abnormalities. CT of the brain without contrast on 10/05/2018: On my review, there is acute to subacute ischemia at the left precentral gyrus subcortical white matter. Cerebral volumes are appropriate for age. Their findings compatible with mhim-ck-hlyxmmty chronic small-vessel ischemic disease. Echocardiogram on 10/06/2018: Ejection fraction 65%. Trace mitral and tricuspid regurgitation. MRI of the brain without contrast on 10/06/2018: There is an acute ischemic stroke involving the left precentral gyrus. Cerebral volumes are appropriate for age. There are scattered punctate and patchy areas of T2/FLAIR hyperintense foci in the periventricular and subcortical white matter compatible with moderate chronic small vessel ischemic disease. MRA of the brain and neck on 10/06/2018: No extracranial or intracranial arterial stenosis or occlusion. ASSESSMENT AND PLAN: Mr. Dalton is a 57-year-old right-hand dominant man with an extensive cardiac history, admitted to [facility] on October 05, 2018, with an ischemic stroke in the left precentral gyrus. The patient's neurological examination is significant for weakness in the right arm and right leg as well as dysmetria of the right arm. The patient's laboratory data and other diagnostic studies have been reviewed and are documented above. Mr. Dalton has undergone a complete stroke evaluation. RECOMMENDATIONS: Further recommendations are as follows: 1. Discontinue aspirin and Plavix. Treatment with Eliquis 5 mg by mouth twice daily will be prescribed for seizure prophylaxis. 2. The patient's stroke occurred approximately 48 hours ago. Therefore, it is safe to gradually lower the patient's blood pressure. Mr. Dalton's home blood pressure medications have been resumed. Monitor the patient's vital signs per unit protocol and adjust medications accordingly. 3. The patient's goal total cholesterol is less than 200 with an LDL of less than 70. The patient's LDL is 103. I agree with treatment with atorvastatin 40 mg by mouth at bedtime daily. 4. The patient's goal hemoglobin A1c is less than 7.0. The patient's hemoglobin A1c is 6.8. Continue treatment with home medications. Continue sliding scale insulin per protocol. Tight glycemic control is recommended, while the patient is in the hospital. 5. Physical therapy has evaluated the patient and recommends SNF placement. A consult for case management for SNF evaluation has been placed. A speech therapy consultation is not needed. 6. GI prophylaxis with Pepcid 20 mg IV twice daily. DVT prophylaxis with Eliquis. 7. Anticipated disposition: senior living facility within 2 to 3 days. 8. Defer treatment of the remaining medical comorbidities to the primary and other services following the patient. 9. Based on the patient's current evaluation, the only poorly controlled risk factor for stroke is a mildly elevated LDL cholesterol. While it is possible the patient's multiple vascular risk factors are the cause of his current stroke, further evaluation with long-term cardiac monitoring is recommended to exclude a paroxysmal arrhythmia as the source of the patient's stroke. Thank you for this consultation. I will continue to follow the patient, while he remains in the hospital. TIME SPENT: 70 minutes. Romana Zapata MD CP/CHARLOTTE /[id number] NAIMA
[2018-10-07] VITALS: BP 131/88
[2018-10-07 04:00] VITALS: BP 102/78
--- NOTE | 2018-10-07 06:58 | NUR ---
D/C summary: Principal dx: Acute lacunar infarct of left prefrontal gyrus Obesity BMi 318 Secondary Dx; HTN DM2 MEtabolic acidosis CAD with hx CABG hx Polio PLAN MRI/A Lipid panel Hba1c PT consult ASA/plavix/statin/BB Prop: scd; pepcid Dispo: f/u labs and imaging; f/u neuro recs Acute lacunar infarct of left prefrontal gyrus, continue eliquis and statin. Bp control. hba1c 6.8, LDL 103. Echo normal; cont PT; d/c planning; d/c home with PT/OT f/u PCP 1 week and neuro 10 days stable d/c >35mins Bob Singh MD, PhD.
[2018-10-07] MEDS ORDERED: Apixaban PO (06:59)
[2018-10-07] MEDS ORDERED: LIPITOR20 MG PO (06:59)
[2018-10-07] MEDS ORDERED: PEPCID20 MG PO (06:59)
--- NOTE | 2018-10-07 06:59 | NUR ---
Pt lying in bed HOB 30 degrees. Denies pain at this time. No distress noted.
[2018-10-07] MEDS: INSULIN REGULAR, HUMAN 100 UNIT/1 ML 3ML VIAL SQ SCH (07:30)
--- NOTE | 2018-10-07 07:30 | NUR ---
Pt in bed. AOX4 and able to verbalize needs. Pt denies any pain at this time.
[2018-10-07 07:49] VITALS: BP 116/75
[2018-10-07 08:00] VITALS: BP 116/75
[2018-10-07] MEDS: FAMOTIDINE 20 MG/2 ML VIAL IV SCH (08:59)
[2018-10-07] MEDS: APIXABAN 5 MG TABLET PO SCH (08:59)
[2018-10-07] MEDS: ISOSORBIDE MONONITRATE 30 MG TAB CR PO SCH (09:00)
[2018-10-07] MEDS: GABAPENTIN 400 MG CAP PO SCH (09:00)
[2018-10-07] MEDS: LISINOPRIL 10 MG TAB PO SCH (09:01)
[2018-10-07 12:00] VITALS: BP 123/75
--- NOTE | 2018-10-08 09:25 | NUR ---
ORDERS FOR SKILLED NURSE, HOME PT/OT AND ROLLING WALKER WRITTEN 10/07 CHOICE LETTER SIGNED 10/07 AND PLACED IN CHART COPY OF CHOICE LETTER TO PT ARRANGED HOME HEALTH WITH BONITA HERNANDEZ [phone] FAXED TO [phone] CONFIRMATION REC'D PT LEFT HOSPITAL BEFORE WALKER WAS GIVEN TO HIM CM CALLED DANIEL MICHELLE THIS MORNING AT [phone] SHE IS COMING TO HOSPITAL TODAY TO IRRIGATOR OVERHEAD R.W. GAVE PT'S MY CARD FOR QUESTIONS/CONCERNS
== END 2018-10-07 13:24 | disposition home health service (06) | DRG 65 ==
LOC: ER 14:30 → ERHOLD 19:26 → MED/SURG3 20:47
PROVIDERS: ADMIT Internal Medicine; ATTEND Internal Medicine
DX: I63.81 Other cerebral infarction due to occlusion or stenosis of small artery (principal); G81.91 Hemiplegia, unspecified affecting right dominant side; E87.2 Acidosis; R47.1 Dysarthria and anarthria; I10 Essential (primary) hypertension; E11.40 Type 2 diabetes mellitus with diabetic neuropathy, unspecified; I25.10 Atherosclerotic heart disease of native coronary artery without angina pectoris; E66.9 Obesity, unspecified; E78.5 Hyperlipidemia, unspecified; F32.9 Major depressive disorder, single episode, unspecified; R00.1 Bradycardia, unspecified; M54.5 Low back pain; G89.29 Other chronic pain; Z68.31 Body mass index [BMI] 31.0-31.9, adult; I25.2 Old myocardial infarction; Z87.891 Personal history of nicotine dependence; Z79.01 Long term (current) use of anticoagulants; Z79.84 Long term (current) use of oral hypoglycemic drugs; Z95.1 Presence of aortocoronary bypass graft; Z86.12 Personal history of poliomyelitis
CPT/HCPCS: 36415; 70450; 70544; 70547; 70551; 71045; 80053; 80061; 81001; 82550; 82553; 82948; 83036; 83735; 83880; 84443; 84484; 85025; 85610; 85730; 93005; 93306; 97139; 99284

== ENCOUNTER 2020-07-10 11:40 | Emergency (ER) | payer MEDICARE, OTHER ==
[~2020-07-10] VITALS: Ht 157.5 cm; Wt 78.9 kg
[~2020-07-10 11:40] MED LIST: Apixaban PO; CLOPIDOGREL75 MG PO; GABAPENTIN400 MG PO; IBUPROFEN400 MG PO; ISOSORBIDE MONO30 MG PO; LIPITOR20 MG PO; LISINOPRIL10 MG PO; METFORMIN HCL500 MG PO; METOPROLOL TART50 MG PO; MS CONTIN15 MG PO; PEPCID20 MG PO
== END 2020-07-10 17:13 | disposition home or self-care (01) ==
LOC: ER 13:27
DX: R07.89 Other chest pain (principal); S20.211A Contusion of right front wall of thorax, initial encounter; W10.8XXA Fall (on) (from) other stairs and steps, initial encounter; Y93.01 Activity, walking, marching and hiking; I10 Essential (primary) hypertension; E78.5 Hyperlipidemia, unspecified; M54.9 Dorsalgia, unspecified; G89.29 Other chronic pain; I25.2 Old myocardial infarction; Z95.1 Presence of aortocoronary bypass graft
CPT/HCPCS: 71101; 99284

== ENCOUNTER 2022-11-04 19:35 | Emergency (ER) | payer MEDICARE, OTHER ==
[~2022-11-04] VITALS: Ht 157.5 cm; Wt 78.9 kg
[2022-11-04] MEDS ORDERED: KEFLEX125 MG/5 M PO (19:51)
[2022-11-04] MEDS ORDERED: DIPHTH/TETANUS/ACEL. PERTUSSIS 0.5 ML SYR IM ONE (20:00)
[2022-11-04] MEDS ORDERED: TETANUS/DIPHTHERIA TOX ADULT 0.5 ML SYR ONE (20:07)
[2022-11-04] MEDS ORDERED: TETANUS/DIPHTHERIA TOX ADULT 0.5 ML SYR IM ONE ×2 (20:15)
[2022-11-04] MEDS ORDERED: BACITRACIN ZINC 0.9GM TP ONE (20:15)
[2022-11-04 21:08] VITALS: BP 136/82; PULSE 71; RESP 18; TEMP 98.2; O2SAT 99
[2022-11-05] MEDS ORDERED: BACITRACIN/POLYMYXIN 30 GM OINT TP SCH (09:00)
== END 2022-11-04 20:45 | disposition home or self-care (01) ==
LOC: ER 19:51
DX: S61.411A Laceration without foreign body of right hand, initial encounter (principal); W25.XXXA Contact with sharp glass, initial encounter; Y92.89 Other specified places as the place of occurrence of the external cause; I10 Essential (primary) hypertension; E78.5 Hyperlipidemia, unspecified; M54.9 Dorsalgia, unspecified; G89.29 Other chronic pain; I25.2 Old myocardial infarction; Z95.1 Presence of aortocoronary bypass graft
CPT/HCPCS: 90471; 90714; 99284

== ENCOUNTER → 2023-12-14 | Outpatient (REF) | payer MEDICARE ==
[~2023-12-14] MED LIST changes: +KEFLEX125 MG/5 M PO
== END ==
LOC: US 10:03
PROVIDERS: ATTEND Family Medicine
DX: R10.11 Right upper quadrant pain (principal)
CPT/HCPCS: 76700

== ENCOUNTER 2024-05-23 12:56 | Emergency (ER) | payer MEDICARE | END 2024-05-23 13:12 | disposition short-term general hospital (02) | LOC: ER 13:10 | DX: R52 Pain, unspecified (principal) ==

== ENCOUNTER → 2024-05-23 | Outpatient (REF) | payer MEDICARE | LOC: RAD 13:32 | PROVIDERS: ATTEND Family Medicine | DX: R20.2 Paresthesia of skin (principal); I69.351 Hemiplegia and hemiparesis following cerebral infarction affecting right dominant side ==